=== PATIENT | male | born 1965 | race African-American/Black ===

== ENCOUNTER 2017-12-27 21:24 | Emergency (ER) | payer SELFPAY ==
[~2017-12-27] VITALS: Ht 180.3 cm; Wt 128.5 kg
[~2017-12-27 21:24] MED LIST: LISINOPRIL; METFORMIN
[2017-12-27 21:57] VITALS: BP 150/84
== END 2017-12-28 02:15 | disposition left against medical advice (07) ==
LOC: ER 21:24
DX: M25.562 Pain in left knee (principal)
CPT/HCPCS: 99281

== ENCOUNTER 2017-12-31 20:34 | Emergency (ER) | payer SELFPAY ==
[~2017-12-31] VITALS: Ht 180.3 cm; Wt 127.0 kg
[2018-01-01 01:45] VITALS: BP 147/86
== END 2018-01-01 02:10 | disposition home or self-care (01) ==
LOC: ER 20:59
DX: E11.9 Type 2 diabetes mellitus without complications (principal); M25.562 Pain in left knee; F17.200 Nicotine dependence, unspecified, uncomplicated; Z79.84 Long term (current) use of oral hypoglycemic drugs
CPT/HCPCS: 73562; 99284; Z7610

== ENCOUNTER 2018-06-18 08:56 | Emergency (ER) | payer SELFPAY ==
[~2018-06-18] VITALS: Ht 175.3 cm; Wt 123.0 kg
[2018-06-18] MEDS ORDERED: LISINOPRIL 20MG TABLET PO ONE (10:45)
[2018-06-18] MEDS ORDERED: KETOROLAC 30MG/ML VIAL IV ONE (10:45)
[2018-06-18] MEDS ORDERED: OXYCODONE HCL/ACETAMINOPHEN 5/325MG TABLET PO ONE (10:45)
[2018-06-18 12:10] VITALS: BP 173/104
== END 2018-06-18 12:34 | disposition home or self-care (01) ==
LOC: ER 09:55
DX: M54.31 Sciatica, right side (principal); M51.37 Other intervertebral disc degeneration, lumbosacral region; I10 Essential (primary) hypertension; E11.9 Type 2 diabetes mellitus without complications; Z72.0 Tobacco use
CPT/HCPCS: 73502; 96374; 99284; J1885; J7030; Z7610

== ENCOUNTER 2020-05-04 08:21 | Emergency (ER) | payer SELFPAY ==
[~2020-05-04] VITALS: Ht 180.3 cm; Wt 130.0 kg
[2020-05-04 10:28] LABS: BASOPHILS % 0.8 % (0.0-2.0); EOSINOPHILS % 3.8 % (0.0-5.0); HEMATOCRIT. 44.7 % (42.0-52.0); HEMOGLOBIN. 14.5 g/dL (14.0-18.0); MEAN CORPUSCULAR HEMOGLOBIN 27.9 pg (28.0-32.0); MEAN CORPUSCULAR VOLUME 85.7 fL (80.0-94.0); MONOCYTES % 6.9 % (2.0-8.0); NEUTROPHILS % 70.5 % (40.0-76.0); PLATELET 162 x1000/uL (130-400); RED BLOOD CELL COUNT 5.22 mill/uL (4.7-6.1); RED CELL DISTRIBUTION WIDTH 14.4 % (11.6-14.6)
[2020-05-04 10:34] LABS: CHLORIDE 105 mEq/L (98-107)
[2020-05-04 11:30] VITALS: BP 202/104
== END 2020-05-04 12:16 | disposition left against medical advice (07) ==
LOC: ER 08:40
DX: I11.0 Hypertensive heart disease with heart failure (principal); I50.9 Heart failure, unspecified; E11.9 Type 2 diabetes mellitus without complications
CPT/HCPCS: 36415; 71045; 80053; 83880; 85025; 93005; 99285

== ENCOUNTER 2021-03-22 19:43 | Inpatient (IN) | payer SELFPAY ==
[~2021-03-22] VITALS: Ht 175.3 cm; Wt 123.8 kg
[2021-03-22 20:29] LABS: BASOPHILS % 0.5 % (0.0-2.0); EOSINOPHILS % 1.6 % (0.0-5.0); HEMATOCRIT. 42.5 % (42.0-52.0); HEMOGLOBIN. 13.9 g/dL (14.0-18.0); LYMPHOCYTES % 13.1 % (20.0-50.0); MEAN CORPUSCULAR HEMOGLOBIN 28.2 pg (28.0-32.0); MEAN CORPUSCULAR VOLUME 86.3 fL (80.0-94.0); MEAN PLATELET VOLUME 8.3 fl (7.4-10.4); MONOCYTES % 6.4 % (2.0-8.0); NEUTROPHILS % 78.4 % (40.0-76.0); PLATELET 142 x1000/uL (130-400); RED BLOOD CELL COUNT 4.92 mill/uL (4.7-6.1); RED CELL DISTRIBUTION WIDTH 14.5 % (11.6-14.6)
[2021-03-22 20:35] LABS: CHLORIDE 98 mEq/L (98-107); PROTHROMBIN TIME 10.8 sec (9.6-11.0)
[2021-03-22 20:37] LABS: BG BASE EXCESS 0.2 mmol/L (-2.0-2.0); BG CARBOXYHEMOGLOBIN 0.2 % (0.5-1.5); BG DEOXYHEMOGLOBIN 7.1 % (0.0-5.0); BG FRACTION INSPIRED OXYGEN 21; BG HCO3 ACT 24.4 mmol/L (22.0-26.0); BG METHEMOGLOBIN 0.2 % (0.0-1.5); BG OXYGEN SATURATION 92.9 % (92.0-98.5); BG OXYHEMOGLOBIN 92.5 % (94.0-97.0); BG PCO2 38.4 mmHg (35.0-45.0); BG PH 7.421 (7.350-7.450); BG PO2 72.1 mmHg (75.0-100.0); BG SAMPLE SITE RIGHT RADIAL; BG TOTAL HEMOGLOBIN 14.3 g/dL (12.0-18.0); BG VENT MODE ROOM AIR
[2021-03-22 20:40] LABS: ETHANOL BLOOD < 10 mg/dL
[2021-03-22 20:43] LABS: CREATINE KINASE 175 IU/L (39-308)
[2021-03-22] MEDS ORDERED: INSULIN REGULAR (HUMULIN R) 300UNITS/3ML VIAL SUBCUT ONE (22:15)
[2021-03-22] MEDS ORDERED: SODIUM CHLORIDE 0.9% 1,000 ML IV ONE ×2 (22:15)
[2021-03-23 00:31] LABS: CLARITY URINE CLEAR (CLEAR); COLOR URINE YELLOW (YELLOW); KETONES URINE 1+ (NEGATIVE); LEUKOCYTE ESTERASE URINE NEGATIVE (NEGATIVE); NITRITE URINE NEGATIVE (NEGATIVE); OCCULT BLOOD URINE NEGATIVE (NEGATIVE); PH URINE 5.5 (4.5-8.0); PROTEIN URINE 3+ (NEGATIVE); SPECIFIC GRAVITY URINE 1.033 (1.005-1.030)
[2021-03-23 00:52] LABS: CANNABINOID URINE SCREEN NEGATIVE (NEGATIVE); PHENCYCLIDINE URINE SCREEN NEGATIVE (NEGATIVE)
[2021-03-23 00:53] LABS: *AMPHETAMINES SCREEN URINE NEGATIVE (NEGATIVE); *BARBITURATES SCREEN URINE NEGATIVE (NEGATIVE); *BENZODIAZEPINES SCREEN URINE NEGATIVE (NEGATIVE); *COCAINE SCREEN URINE NEGATIVE (NEGATIVE); METHADONE URINE SCREEN NEGATIVE (NEGATIVE); OPIATES URINE SCREEN NEGATIVE (NEGATIVE)
[2021-03-23 01:45] VITALS: BP 139/88
[2021-03-23 02:55] VITALS: BP 145/72
[2021-03-23 04:00] VITALS: BP 127/94
[2021-03-23] MEDS ORDERED: DEXTROSE 50% WATER 50ML SYRINGE IV PRN (06:30)
[2021-03-23] MEDS: BLOOD SUGAR DIAGNOSTIC STRIP TEST SCH ×4 (06:57→20:39)
[2021-03-23] MEDS ORDERED: LIP40 MT (07:25)
[2021-03-23] MEDS ORDERED: LOSA1TAB37 MT (07:25)
[2021-03-23] MEDS ORDERED: METF-414 MT (07:25)
[2021-03-23 08:05] VITALS: BP 133/89
[2021-03-23 08:09] LABS: BASOPHILS % 0.6 % (0.0-2.0); EOSINOPHILS % 2.5 % (0.0-5.0); HEMATOCRIT. 37.3 % (42.0-52.0); HEMOGLOBIN. 12.3 g/dL (14.0-18.0); LYMPHOCYTES % 21.6 % (20.0-50.0); MEAN CORPUSCULAR HEMOGLOBIN 28.1 pg (28.0-32.0); MEAN CORPUSCULAR VOLUME 85.6 fL (80.0-94.0); MEAN PLATELET VOLUME 8.3 fl (7.4-10.4); MONOCYTES % 8.7 % (2.0-8.0); NEUTROPHILS % 66.6 % (40.0-76.0); PLATELET 133 x1000/uL (130-400); RED BLOOD CELL COUNT 4.36 mill/uL (4.7-6.1); RED CELL DISTRIBUTION WIDTH 14.9 % (11.6-14.6)
[2021-03-23 08:40] LABS: T4 FREE 1.08 ng/dL (0.76-1.46)
[2021-03-23 09:04] LABS: CHLORIDE 106 mEq/L (98-107)
[2021-03-23 09:12] LABS: LDL CHOLESTEROL 177 mg/dL (5-100)
[2021-03-23 09:13] LABS: HDL CHOLESTEROL 53 mg/dL (40-59)
[2021-03-23] MEDS: INSULIN LISPRO 100 UNITS/ML SUBCUT SCH ×4 (09:49→21:02)
[2021-03-23] MEDS: SODIUM CHLORIDE 0.9% 1,000 ML IV SCH ×2 (09:53→21:35)
[2021-03-23 12:04] VITALS: BP 130/90
[2021-03-23] MEDS ORDERED: ACETAMINOPHEN 325MG TABLET PO PRN ×2 (13:45)
[2021-03-23] MEDS ORDERED: ONDANSETRON HCL 4MG/2ML INJ IV PRN (13:45)
[2021-03-23] MEDS ORDERED: CLONIDINE 0.1MG TABLET PO PRN (13:45)
[2021-03-23] MEDS ORDERED: DOCUSATE SODIUM 100MG CAPSULE PO PRN (13:45)
[2021-03-23] MEDS ORDERED: IPRATROPIUM/ALBUTEROL 0.5-3(2.5)MG/3ML NEB HHN PRN (13:45)
[2021-03-23] MEDS ORDERED: HYDROCODONE/ACETAMINOPHEN 5/325MG TABLET PO PRN (13:45)
[2021-03-23] MEDS ORDERED: LORAZEPAM 0.5MG TABLET PO PRN (13:45)
[2021-03-23 16:31] VITALS: BP 127/98
[2021-03-23 17:07] LABS: CREATINE KINASE MB FRACTION 9.9 ng/mL (0.5-3.6)
[2021-03-23] MEDS ORDERED: IOHEXOL-350 100 ML BOTTLE ONE (18:37)
[2021-03-23] MEDS: ENOXAPARIN 120MG/0.8ML SYR SUBCUT SCH (18:58)
[2021-03-23 23:35] LABS: CREATINE KINASE MB FRACTION 6.8 ng/mL (0.5-3.6)
[2021-03-24] MEDS: SODIUM CHLORIDE 0.9% 1,000 ML IV SCH (02:19)
[2021-03-24 06:33] LABS: BASOPHILS % 0.8 % (0.0-2.0); HEMATOCRIT. 35.6 % (42.0-52.0); HEMOGLOBIN. 11.9 g/dL (14.0-18.0); MEAN CORPUSCULAR HEMOGLOBIN 28.6 pg (28.0-32.0); MEAN CORPUSCULAR VOLUME 85.4 fL (80.0-94.0); MEAN PLATELET VOLUME 8.7 fl (7.4-10.4); MONOCYTES % 7.4 % (2.0-8.0); NEUTROPHILS % 59.8 % (40.0-76.0); PLATELET 120 x1000/uL (130-400); RED BLOOD CELL COUNT 4.16 mill/uL (4.7-6.1); RED CELL DISTRIBUTION WIDTH 14.3 % (11.6-14.6)
[2021-03-24 07:43] LABS: CHLORIDE 107 mEq/L (98-107)
[2021-03-24] MEDS: BLOOD SUGAR DIAGNOSTIC STRIP TEST SCH ×3 (07:53→17:02)
[2021-03-24 07:54] LABS: CREATINE KINASE 223 IU/L (39-308)
[2021-03-24 08:00] VITALS: BP_SYST 160; BP_SYST 168; BP_SYST 178; BP_DIAS 101; BP_DIAS 110; BP_DIAS 98
[2021-03-24] MEDS: ENOXAPARIN 120MG/0.8ML SYR SUBCUT SCH (08:41)
[2021-03-24] MEDS: INSULIN LISPRO 100 UNITS/ML SUBCUT SCH ×3 (08:42→17:06)
[2021-03-24 16:09] LABS: HEPATITIS B SURFACE ANTIGEN NEGATIVE
[2021-03-24 16:39] LABS: HEPATITIS A AB IGM NEGATIVE (NEGATIVE)
== END 2021-03-24 18:23 | disposition left against medical advice (07) | DRG 134 ==
LOC: ER 19:43 → 6WST 23:23 → ENRESERV 23:31
PROVIDERS: ADMIT Hospitalist; ATTEND Internal Medicine
DX: I26.99 Other pulmonary embolism without acute cor pulmonale (principal); I21.4 Non-ST elevation (NSTEMI) myocardial infarction; E87.2 Acidosis; I11.0 Hypertensive heart disease with heart failure; I50.40 Unspecified combined systolic (congestive) and diastolic (congestive) heart failure; E11.65 Type 2 diabetes mellitus with hyperglycemia; K76.0 Fatty (change of) liver, not elsewhere classified; E78.5 Hyperlipidemia, unspecified; D64.9 Anemia, unspecified; F17.200 Nicotine dependence, unspecified, uncomplicated; R80.9 Proteinuria, unspecified; S09.90XA Unspecified injury of head, initial encounter; X58.XXXA Exposure to other specified factors, initial encounter; Z20.822 Contact with and (suspected) exposure to COVID-19; Y93.89 Activity, other specified; Z79.899 Other long term (current) drug therapy; Z82.49 Family history of ischemic heart disease and other diseases of the circulatory system; Z79.4 Long term (current) use of insulin; Y92.091 Bathroom in other non-institutional residence as the place of occurrence of the external cause; Y99.8 Other external cause status
CPT/HCPCS: 36415; 36600; 71045; 71275; 76700; 80048; 80053; 80061; 80076; 80305; 80320; 81003; 82375; 82550; 82553; 82805; 82962; 83036; 83605; 83615; 83880; 84145; 84439; 84443; 84484; 85025; 85379; 85384; 86140; 86705; 86709; 86803; 86850; 86900; 87340; 87426; 93005; 93306; 93880; 93970; 99291; J1650; J1815; J7030; Q9967; G0480